=== PATIENT | male | born 1960 | race Caucasian/White ===

== ENCOUNTER 2017-07-04 22:01 | Observation (INO) ==
--- NOTE | 2017-07-04 22:04 | Emergency Department Note ---
Disposition Clinical Impression: Cerebrovascular accident Disposition: Admitted As Inpatient Condition: Fair Forms: ED Satisfaction Letter Time of Disposition: 23:59 Neuro HPI - General Chief Complaint: ED Neuro Symptoms/Deficit Stated Complaint: multiple complaints Time Seen by Provider: 07/04/17 22:04 Source: patient, EMS Mode of arrival: EMS Limitations: no limitations Nursing Notes Reviewed: Yes Vital Signs Reviewed: Yes - History of Present Illness HPI Narrative: With the past 6 days the patient has been having intermittent weakness of the right arm right leg with numbness and tingling initially it was intermittent but has been progressively worsening to the point now where it is persistent at about 9:00 today it got worse he denies fever chills blurred vision double vision tells me that that has not been sleeping very much she has noticed that he has had some difficulty speaking he denies any headache neck pain neck stiffness rashes or lesions he states though that with confirmation of these symptoms have been going on for at least 6 days about 3 months ago 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 Denies: confusion, chest pain, cough, diaphoresis, fever/chills, headaches, nausea/ vomiting, vertigo, seizures, shortness of breath, syncope Treatments Prior to Arrival: monitor, prehospital POC glucose - Related Data Home Medications: Home Medications Medication Instructions Recorded Confirmed HYDROcodone/Acet 5/325 mg 07/04/17 Nexium 07/04/17 Allergies/Adverse Reactions: Allergies Allergy/AdvReac Type Severity Reaction Status Date / Time COOL WHIP AdvReac Hives Uncoded 10/15/15 09:05 All systems ED: reviewed and negative except as stated. Review of Systems: As Per HPI Constitutional: Reports: weakness. Denies: fever, chills Eyes: Denies: eye pain, eye discharge ENT ED: Denies: ear pain, throat pain Cardiovascular: Denies: chest pain, palpitations Respiratory: Denies: cough, dyspnea, wheezes Gastrointestinal: Denies: abdominal pain, nausea, vomiting Genitourinary: Denies: urgency, dysuria, frequency Musculoskeletal: Denies: back pain Integumentary: Denies: rash, abrasion Neurological: Reports: weakness, numbness, abnormal gait. Denies: headache Psychiatric: Denies: anxiety Endocrine: Denies: fatigue Hematological/Lymphatic: Denies: easy bleeding Allergic/Immunologic: Denies: facial swelling Past Medical History - Past Medical History Attestation: Yes The following information was validated with the patient. Source: patient, old records reviewed, nursing notes reviewed Medical history: Reports: arthritis, COPD, GERD, hyperlipidemia, hypertension, myocardial infarction, valvular heart disease Surgical history: Reports: cholecystectomy, hip replacement Psychiatric history: Reports: no psych history - Social History Smoking Status: Current every day smoker Alcohol use: Reports: rarely Drug use: Reports: none Physical Exam - General Limitations: language barrier General appearance: alert, in no apparent distress - Head Head exam: atraumatic, normocephalic, normal inspection - Eye Eye exam: Present: normal appearance, PERRL, EOMI - ENT ENT exam: normal exam, normal oropharynx, mucous membranes moist, TM's normal bilaterally, normal external ear exam, other (Patient has trouble speaking appears to have some left-sided facial weakness) - Neck Neck exam: Present: normal inspection, full ROM, trachea midline - Chest Chest inspection: Present: normal inspection, symmetric chest wall rise. Absent : tenderness - Respiratory Respiratory exam: Present: normal lung sounds bilaterally - Cardiovascular Cardiovascular exam: Present: regular rate, normal rhythm, normal heart sounds - Abdominal Exam Abdominal exam: Present: soft, Non-Tender, normal bowel sounds. Absent: mass, pulsatile mass - Expanded Upper Extremity Exam Shoulder exam: Present: normal inspection, full ROM, other (Right-sided arm and leg weakness in comparison to the left with numbness noted to these extremities with a dulled sensation left side is normal) Arm exam: Present: normal inspection, full ROM Elbow exam: Present: normal inspection, full ROM Forearm/Wrist exam: Present: normal inspection, full ROM Hand exam: Present: normal inspection, full ROM Neurosensory exam: Normal: radial nerve, ulnar nerve, median nerve Vascular exam: Normal: capillary refill, radial pulse, ulnar pulse - Expanded Lower Extremity Exam Hip/Pelvis exam: Present: normal inspection, full ROM, other (Right leg right knee right hip weakness with numbness down the leg decreased sensation in comparison to the left patient has trouble lifting legs up off the bed) Upper leg exam: Present: normal inspection, full ROM Knee exam: Present: normal inspection, full ROM Lower leg exam: Present: normal inspection, full ROM Ankle exam: Present: normal inspection, full ROM Foot/toe exam: Present: normal inspection, full ROM Neurovascular/Tendon exam: Present: normal capillary refill, normal fine/light touch. Absent: motor deficit, sensory deficit, tendon deficit Gait: observed and normal - Back Exam Back exam: Present: normal inspection, full ROM. Absent: muscle spasm - Neurological Exam Neurological exam: Present: alert, oriented X3 - Psychiatric Psychiatric exam: Present: normal affect, normal mood - Skin Skin exam: Present: warm, dry, intact, normal color Course Course Narrative: he was seen and examined CT was done with notification of a subacute infarct I did speak with family about the findings of the results I offered to send to [place] or [facility] as result of an acute stroke they did not want to travel to [place] and they were understanding that he was outside the stroke window because symptoms have been occurring up to the sixth days patient will be admitted to our facility for physical therapy and occupational therapy and speech therapy evaluation and further management Vital Signs Temperature 98.6 F 07/04/17 22:05 Pulse Rate 87 07/04/17 22:05 Respiratory Rate 24 07/04/17 22:05 Blood Pressure 140/92 07/04/17 22:05 O2 Sat by Pulse Oximetry 93 07/04/17 22:05 Temperature 98.6 F 07/04/17 22:05 Pulse Rate 82 07/04/17 23:41 Respiratory Rate 24 07/04/17 23:41 Blood Pressure 155/82 07/04/17 23:41 O2 Sat by Pulse Oximetry 95 07/04/17 23:41 Oxygen Delivery Oxygen Delivery Nasal Cannula Neuro Symptoms/Deficit - Differential Diagnosis Likely: cerebrovascular accident, transient cerebral ischemia - Medical Records Medical records reviewed: Yes I reviewed the patient's medical records. - Lab Data Lab results reviewed: Yes I reviewed the patient's lab results. Result diagrams: 07/04/17 22:07 07/04/17 22:07 Lab Results 07/04/17 07/04/17 07/04/17 Range/Units 22:07 22:07 22:07 WBC 10.1 (4.3-11.1) K/mcL RBC 4.92 (4.19-5.50) M/mcL Hgb 16.0 (12.9-16.9) g/dL Hct 46.0 (37.5-50.1) % MCV 93.5 (83.0-100.0) fL MCH 32.5 (28.0-33.3) pg MCHC 34.8 (31.6-35.5) g/dL RDW 12.8 (11.5-14.5) % Plt Count 241 (140-400) K/mcL MPV 10.9 (9.4-12.4) fL Immature Gran % 0.3 (0-4) % Seg Neutrophils % 52.1 % Lymphocytes % 31.6 % Monocytes % 9.3 % Eosinophils % 5.9 % Basophils % 0.8 % Neutrophils # 5.2 (1.6-8.9) K/mcL Lymphocytes # 3.2 (0.6-4.6) K/mcL Monocytes # 0.9 (0.0-1.3) K/mcL Eosinophils # 0.6 (0.0-0.6) K/mcL Basophils # 0.1 (0.0-0.2) K/mcL PT 10.6 (9.4-12.1) Seconds INR 1.0 APTT 35.9 (26.0-36.0) Seconds ABG pH (7.32-7.45) pH Units ABG pCO2 (35-45) mmHg ABG pO2 (85-104) mmHg ABG HCO3 (21-27) mEQ/L ABG Total CO2 (20-26) mEq/L ABG O2 Saturation (95-98) % ABG Base Excess (-2.0 to 3.0) mEq/L Inspired O2 % Sodium 138 (136-145) mEq/L Potassium 4.0 (3.5-4.5) mEq/L Chloride 108 (98-109) mEq/L Carbon Dioxide 19 (19-29) mEq/L BUN 9 (8-26) mg/dL Creatinine 0.77 (0.72-1.25) mg/dL Est GFR ( Amer) > 60 (> 60) Est GFR (Non-Af Amer) > 60 (> 60) BUN/Creatinine Ratio 12 (6-26) Glucose 103 H (70-99) mg/dL Calculated Osmolality 285 (280-300) Calcium 10.1 (8.6-10.8) mg/dL Total Bilirubin 0.4 (0.2-1.2) mg/dL AST 24 (5-34) Units/L ALT 28 (0-55) Units/L Alkaline Phosphatase 92 (38-126) Units/L Troponin I (0-0.03) ng/mL Serum Total Protein 7.9 (6.0-8.3) g/dL Albumin 3.6 (3.5-5.0) g/dL Globulin 4.3 H (2.4-3.5) g/dL Albumin/Globulin Ratio 0.8 L (1.1-2.2) TSH 0.708 (0.350-4.840) mcIU/mL 07/04/17 07/04/17 07/04/17 Range/Units 22:07 23:35 23:42 WBC (4.3-11.1) K/mcL RBC (4.19-5.50) M/mcL Hgb (12.9-16.9) g/dL Hct (37.5-50.1) % MCV (83.0-100.0) fL MCH (28.0-33.3) pg MCHC (31.6-35.5) g/dL RDW (11.5-14.5) % Plt Count (140-400) K/mcL MPV (9.4-12.4) fL Immature Gran % (0-4) % Seg Neutrophils % % Lymphocytes % % Monocytes % % Eosinophils % % Basophils % % Neutrophils # (1.6-8.9) K/mcL Lymphocytes # (0.6-4.6) K/mcL Monocytes # (0.0-1.3) K/mcL Eosinophils # (0.0-0.6) K/mcL Basophils # (0.0-0.2) K/mcL PT (9.4-12.1) Seconds INR APTT (26.0-36.0) Seconds ABG pH 7.41 7.40 (7.32-7.45) pH Units ABG pCO2 36 36 (35-45) mmHg ABG pO2 80 L 80 L (85-104) mmHg ABG HCO3 22.7 22.7 (21-27) mEQ/L ABG Total CO2 23.9 23.9 (20-26) mEq/L ABG O2 Saturation 96 96 (95-98) % ABG Base Excess -2.0 -1.5 (-2.0 to 3.0) mEq/L Inspired O2 21 % Sodium (136-145) mEq/L Potassium (3.5-4.5) mEq/L Chloride (98-109) mEq/L Carbon Dioxide (19-29) mEq/L BUN (8-26) mg/dL Creatinine (0.72-1.25) mg/dL Est GFR ( Amer) (> 60) Est GFR (Non-Af Amer) (> 60) BUN/Creatinine Ratio (6-26) Glucose (70-99) mg/dL Calculated Osmolality (280-300) Calcium (8.6-10.8) mg/dL Total Bilirubin (0.2-1.2) mg/dL AST (5-34) Units/L ALT (0-55) Units/L Alkaline Phosphatase (38-126) Units/L Troponin I 0.00 (0-0.03) ng/mL Serum Total Protein (6.0-8.3) g/dL Albumin (3.5-5.0) g/dL Globulin (2.4-3.5) g/dL Albumin/Globulin Ratio (1.1-2.2) TSH (0.350-4.840) mcIU/mL - Radiology Data Radiology results reviewed: Yes I reviewed the patient's radiology results. ITS Impressions Chest X-Ray 07/04/17 22:23 IMPRESSION: Stable coarsening of the interstitial markings, likely related to pulmonary fibrosis. Otherwise no acute cardiopulmonary disease. Trace left pleural effusion is suspected. D/ / Jon Hahn MD / Jon Hahn MD Interpreting Provider: Jon Hahn MD Head CT 07/04/17 22:23 IMPRESSION: 1. Evidence of a late subacute chronic infarct involving the right periventricular white matter, though this is new when compared to the previous exam. Otherwise, the brain parenchyma is stable when compared to the previous exam. D/ / Keanu Moore MD / Keanu Moore MD Interpreting Provider: Keanu Moore MD - EKG Data EKG attestation: Yes I reviewed and interpreted this EKG. EKG results narrative: On his rhythm rate 90 pR 127 QRS 108 QT 355 axis XCI NIH Stroke Scale - Level of Consciousness LOC: Drowsy, but arousable - LOC Questions LOC Questions: Answers both correctly - LOC Commands LOC Commands: Performs both correctly - Best Gaze Best Gaze: Normal - Visual Visual: No visual loss - Facial Palsy Facial Palsy: Minor asymmetry on smiling, flattened nasolabial fold - Motor Arms Motor Arm-Left: No drift for 10 seconds Motor Arm-Right: Drift, does NOT hit bed - Motor Legs Motor Leg-Left: No drift for 5 seconds Motor Leg-Right: No effort against gravity, limb falls to bed, some movement - Limb Ataxia Limb Ataxia: Present in TWO limbs - Sensory Sensory: Mild to moderate loss, "not as sharp" - Best Language Best Language: Mild to moderate aphasia. Examiner can identify picture from response - Dysarthria Dysarthria: Mild, slurs some words - Extinction and Inattention Extinction and Inattention: Inattention or extinction in ONE modality - NIHSS Total Score NIHSS Total Score: 12 TPA Checklist - LKW: 3-4.5 hrs Add. Warnings/Precautions Patient/family understanding: The patient/family members have been counseled and understood the risk, benefit , and alternatives of treatment. Critical Care Time Critical Care Time: Yes Total Critical Care Time: 35 Attestation: Critical care performed: 35 minutes as the result of evaluating the patient for possibility of an acute stroke but appears to be consistent with a stroke event that has occurred up to within the past 6 days discussed with family about the findings make arrangements for admission Time is exclusive of separately billable procedures. Time includes: direct patient care, patient reassessment, coordination of patient care, interpretation of data (laboratory data, radiology data, and respiratory data), review of patient's medical records, medical consultation and documentation of patient care. Procedures included in critical care time: Procedures excluded from critical care time:
[2017-07-04 22:30] LABS: Activated Partial Thrombo Time 35.9 Seconds (26.0-36.0); Basophils # 0.1 K/mcL (0.0-0.2); Basophils % 0.8 %; Eosinophils # 0.6 K/mcL (0.0-0.6); Eosinophils % 5.9 %; Immature Granulocytes % 0.3 % (0-4); Lymphocytes # 3.2 K/mcL (0.6-4.6); Lymphocytes % 31.6 %; Mean Corpuscular HGB Conc 34.8 g/dL (31.6-35.5); Mean Corpuscular Hemoglobin 32.5 pg (28.0-33.3); Mean Corpuscular Volume 93.5 fL (83.0-100.0); Mean Platelet Volume 10.9 fL (9.4-12.4); Monocytes # 0.9 K/mcL (0.0-1.3); Monocytes % 9.3 %; Neutrophils # 5.2 K/mcL (1.6-8.9); Platelet Count 241 K/mcL (140-400); Prothrombin Time 10.6 Seconds (9.4-12.1); Red Blood Count 4.92 M/mcL (4.19-5.50); Red Cell Distribution Width 12.8 % (11.5-14.5); Segmented Neutrophils % 52.1 %
[2017-07-04 22:44] LABS: Alanine Aminotransferase 28 Units/L (0-55); Albumin 3.6 g/dL (3.5-5.0); Albumin/Globulin Ratio 0.8 (1.1-2.2); Alkaline Phosphatase 92 Units/L (38-126); Aspartate Amino Transferase 24 Units/L (5-34); BUN/Creatinine Ratio 12 (6-26); Bilirubin,Total 0.4 mg/dL (0.2-1.2); Blood Urea Nitrogen 9 mg/dL (8-26); Calcium 10.1 mg/dL (8.6-10.8); Carbon Dioxide 19 mEq/L (19-29); Chloride 108 mEq/L (98-109); Globulin 4.3 g/dL (2.4-3.5); Glucose 103 mg/dL (70-99); Osmolality,Calculated 285 (280-300); Sodium 138 mEq/L (136-145); Total Protein 7.9 g/dL (6.0-8.3); eGFR For African Americans > 60 (> 60); eGFR For Non-African Americans > 60 (> 60)
[2017-07-04 23:03] LABS: Thyroid Stimulating Hormone 0.708 mcIU/mL (0.350-4.840)
[2017-07-04 23:44] LABS: ABG PH 7.41 pH Units (7.32-7.45)
[2017-07-04 23:45] LABS: ABG HCO3 22.7 mEQ/L (21-27); ABG Oxygen Saturation 96 % (95-98); ABG PCO2 36 mmHg (35-45); ABG PO2 80 mmHg (85-104); ABG TCO2 23.9 mEq/L (20-26); Blood Gas FiO2 21 %
[2017-07-04 23:46] LABS: ABG Base Excess -1.5 mEq/L (-2.0 to 3.0); ABG HCO3 22.7 mEQ/L (21-27); ABG Oxygen Saturation 96 % (95-98); ABG PCO2 36 mmHg (35-45); ABG PO2 80 mmHg (85-104); ABG TCO2 23.9 mEq/L (20-26)
[2017-07-05] MEDS ORDERED: D5% in Water 1,000 ML IVC PRN (00:46)
[2017-07-05] MEDS ORDERED: *HR* Morphine 2 MG/ML SYRINGE IVP PRN (00:46)
[2017-07-05] MEDS ORDERED: Naloxone 0.4 MG/ML INJ IVP PRN (00:46)
[2017-07-05] MEDS ORDERED: Ondansetron 4 MG/2 ML VIAL IVP PRN (00:46)
[2017-07-05] MEDS ORDERED: Dextrose Gel 15 GM PO PRN ×2 (00:46)
[2017-07-05] MEDS ORDERED: *HR* Dextrose 50 % in Water (Syg) 50 ML SYRINGE IVP PRN (00:46)
[2017-07-05] MEDS: 0.9 % Sodium Chloride 1,000 ML IVC SCH ×2 (04:10→16:54)
[2017-07-05] MEDS: Insulin LISPRO 300 UNITS/3 ML VIAL SQ SCH ×3 (07:30→18:07)
[2017-07-05] MEDS ORDERED: Perflutren Lipid Microsphere 1.3 ML in 0.9 % Sodium Chloride 8.7 ML IVP ONE (16:03)
--- NOTE | 2017-07-05 17:26 | Internal Med History&Physical ---
Date of Encounter: 07/05/17 Time of Encounter: 16:50 Assessment and Plan (1) Cerebrovascular accident Current visit: Yes Status: Acute I explained to him his head CT showed subacute right periventricular white matter infarct but this distribution would not explain his symptoms of right arm weakness and dysarthria. I will start him on aspirin. Carotid Doppler studies preliminary report shows no significant stenosis. Echocardiogram report is pending. He appears to have recovered without neurologic deficit present now. Qualifiers: CVA mechanism: unspecified Qualified Code(s): I63.9 - Cerebral infarction, unspecified Internal Medicine - H&P: HPI Chief complaint: Neurologic deficit Admitted From: Home Plans for Post Hospital Care: Home History of present illness: Mr. Mcfarlane is a 57 year old male who came to the emergency room stating he had multiple episodes of transient numbness and weakness with loss of control of his right arm. He reports episodes typically lasted several minutes to hours and gradually resolved. They would occasionally returned the same day. This occurred on a daily basis until the day of admission when he noticed he also had dysarthria present. He was able to contact his who brought him to the emergency room. He was evaluated and admitted to [facility] for ongoing care needs. He states he feels back to his baseline now. He denies previous similar episodes prior to 6 days ago. He denies history of large distribution strokes or seizures. Past Med Surg Social Fam HX - Past Medical History Medical history: arthritis, COPD, GERD, hyperlipidemia, hypertension, myocardial infarction, valvular heart disease Psychiatric history: no psych history - Past Surgical History Surgical History: cholecystectomy, hip replacement - Social History Smoking Status: Current every day smoker Packs per day: 1 Smokeless Tobacco Status: No Alcohol use: rarely Drug use: none Internal Medicine - H&P: Meds HYDROcodone/Acet 5/325 mg 07/04/17 [History] Nexium 07/04/17 [History] Allergies COOL WHIP Adverse Reaction (Uncoded 10/15/15 09:05) Hives All Systems PM: A 10-system review of systems was performed and is negative for pertinent findings except as documented above in the HPI. Review of systems: Gen.: He states his weight has decreased 30-40 pounds in the past year, intentionally Cardiovascular: He denies known hypertension CO heart failure DVT or pulmonary embolus. An echocardiogram done 10/15/2015 showed LVEF 60% with moderate LV diastolic dysfunction reported. The E/A ratio was 1.3. Respiratory: He has smoked since age 10 up to 6 packs per day. He has a diagnosis of COPD. He does not use home oxygen. GI: He states he has chronic diarrhea. He has had cholecystectomy. He has GERD. He denies disorders of his liver or exocrine pancreas : He has had kidney stones in the past. He denies other kidney bladder prostate disorders Neurologic: As per history of present illness Endocrine: He has no known diabetes thyroid disease or hyperlipidemia Hematology/oncology: Denies blood disorders cancers or anemia Psychiatric: He has anxiety but denies depression or other mental health issues Musk skeletal: He has DJD but denies gout or other bone joint or muscle disorders. - Constitutional Vitals: Temp Pulse Resp BP Pulse Ox 97.9 F 75 16 113/77 95 07/05/17 13:13 07/05/17 13:31 07/05/17 13:31 07/05/17 13:31 07/05/17 13:31 Exam: Gen.: He is a well-developed well-nourished male who appears in no acute distress at present time. HEENT: Head is atraumatic and normocephalic. Eyes: EOMI. There is no scleral icterus. Mouth: Mucosa is moist. Neck: Supple and nontender. There is no thyromegaly or adenopathy noted. Heart: Regular without murmurs gallops or ectopics Lungs: No wheezes or crackles are heard. Abdomen: Soft and nontender. No masses or guarding noted. Extremities: There is no cyanosis edema or clubbing noted. Dorsalis pedis and posterior tibial pulses are 1-2 over 2 bilaterally. Neurologic: Mental status: He is talkative and a good historian. Cranial nerves : Smile is symmetric. Forehead wrinkles bilaterally. Tongue protrudes midline. EOMI. There is no dysarthria. Motor: There is no pronator drift. Ankle flexion and extension strength against resistance is normal and symmetric. Rapid finger movements are symmetric. Cerebellar: Finger to nose is intact bilaterally. Skin: Warm and dry Internal Med - H&P Results - Labs CBC & Chem 7: 07/04/17 22:07 07/04/17 22:07 Labs: Cardiac Enzymes 07/05/17 07/05/17 Range/Units 04:10 11:23 Troponin I 0.00 0.00 (0-0.03) ng/mL
[2017-07-05] MEDS ORDERED: Aspirin 325 MG TABLET PO SCH (17:45)
[2017-07-05] MEDS: *HR* HYDROcodone/Acet 5/325 mg TABLET PO PRN (21:34)
[2017-07-06] MEDS: *HR* HYDROcodone/Acet 5/325 mg TABLET PO PRN (05:04)
[2017-07-06 06:58] VITALS: BP 155/87
[2017-07-06] MEDS ORDERED: Aspirin Enteric Coated 81 MG Tablet PO SCH (09:00)
--- NOTE | 2017-07-06 09:38 | Discharge Summary ---
Date of Encounter: 07/06/17 Time of Encounter: 09:30 - Discharge Diagnosis (1) TIA (transient ischemic attack) Priority: Primary Status: Acute Qualifiers: Transient cerebral ischemia type: unspecified Qualified Code(s): G45.9 - Transient cerebral ischemic attack, unspecified (2) Cerebrovascular accident Priority: Secondary Status: Acute Qualifiers: CVA mechanism: unspecified Qualified Code(s): I63.9 - Cerebral infarction, unspecified - Discharge Medications Home Medications: HYDROcodone/Acet 5/325 mg 07/04/17 [History] Nexium 07/04/17 [History] Aspirin Enteric Coated [Aspirin EC] 81 mg PO DAILY 07/06/17 [Rx] Allergies/Adverse Reactions: Allergies COOL WHIP Adverse Reaction (Uncoded 10/15/15 09:05) Hives Procedures/tests Complete & Pending: Procedures Performed prior 72 hours Category Date Time Status EV echocardiogram w enhance Stat Y 07/05/17 00:46 Completed Date of admission: 07/05/17 00:27 Primary care physician: Chin Alvarez M.D. - Patient Status Disposition: Home, Self-Care Condition: Fair Functional capacity at discharge: independent ambulation Overall status at discharge: patient is progressing back to baseline - Discharge Instructions Follow Up With: Chin Alvarez MD [Partnered Physician] - 1 week - Diet and Activity Activity: resume usual activities as tolerated Diet: advance to your usual diet Hospital course: Mr. Mcfarlane is a 57 year old male who came to the emergency room stating he had multiple episodes of transient numbness and weakness with loss of control of his right arm. He reports episodes typically lasted several minutes to hours and gradually resolved. They would occasionally returned the same day. This occurred on a daily basis until the day of admission when he noticed he also had dysarthria present. He was able to contact his who brought him to the emergency room. He was evaluated and admitted to [facility] for ongoing care needs. Initial orders were written by the emergency room physician. I saw him on July 05 and performed a history and physical. When I saw him he had no neurologic deficit present. Carotid Doppler studies and echocardiogram were done with final reports pending at time of this dictation. He had no further TIAs. He was started on aspirin 81 mg daily. When I saw him on July 06 he wished to be discharged on which I felt was reasonable. Room air oximetry on 6 minute walk showed satisfactory oxygen levels maintained. I encouraged him to discontinue smoking. He will follow with his PCP Dr. Chin Alvarez within 1 week. - Time Spent with Patient Total time spent providing and/or coordinating discharge services: - Constitutional Vitals: Temp Pulse Resp BP Pulse Ox 97.8 F 76 18 155/87 95 07/06/17 06:56 07/06/17 06:56 07/06/17 06:56 07/06/17 06:56 07/06/17 09:02
--- NOTE | 2017-07-06 17:25 | Carotid Imaging Report ---
Carotid Duplex Patient Name:Graham Mcfarlane Order Number:[id number] Procedure Date:07/05/2017 Date:8Age:57 yrs Gender:Male Lt BP:120 / 60 mmHg Rt.BP:120 / 60 mmHgHeart Rate: Location:[facility] Room #: 55 Financial Dealers:SHERRY JenningsT, CS Referring MD:Jon Ribera MD energy conservation director:Chin Alvarez MD Reading MD:Graham Flaherty MD Primary Indications:cva Risk Factors Yes/No Diabetes No Impressions: The bilateral carotid arteries have minimal plaque throughout. Findings Carotid Duplex: Right: The right proximal common carotid artery has a PSV of 108 cm/s and a EDV of 15 cm/s. The right mid common carotid artery has a PSV of 82 cm/s and a EDV of 14 cm/s. The right distal common carotid artery has a PSV of 77 cm/s and a EDV of 18 cm/s. The right bifurcation has a PSV of 58 cm/s and a EDV of 15 cm/s. There is smooth heterogeneous plaque. The right proximal internal carotid artery has a PSV of 67 cm/s and a EDV of 16 cm/s. There is smooth heterogeneous plaque. The right mid internal carotid artery has a PSV of 82 cm/s and a EDV of 9 cm/s. The right distal internal carotid artery has a PSV of 73 cm/s and a EDV of 23 cm/s. The right eca has a PSV of 83 cm/s and a EDV of 9 cm/s. The right vertebral artery has a PSV of 41 cm/s and a EDV of 10 cm/s. Left: The left proximal common carotid artery has a PSV of 104 cm/s and a EDV of 18 cm/s. The left mid common carotid artery has a PSV of 89 cm/s and a EDV of 16 cm/s. The left distal common carotid artery has a PSV of 97 cm/s and a EDV of 22 cm/s. The left bifurcation has a PSV of 66 cm/s and a EDV of 20 cm/s. There is smooth heterogeneous plaque. The left proximal internal carotid artery has a PSV of 66 cm/s and a EDV of 20 cm/s. There is smooth heterogeneous plaque. The left mid internal carotid artery has a PSV of 72 cm/s and a EDV of 20 cm/s. The left distal internal carotid artery has a PSV of 80 cm/s and a EDV of 24 cm/s. The left eca has a PSV of 84 cm/s and a EDV of 16 cm/s. The left vertebral artery has a PSV of 41 cm/s and a EDV of 11 cm/s. Carotid Results Right PSV EDV Assessment Proximal CCA 108 15 Mid CCA 82 14 Distal CCA 77 18 Bifurcation 58 15 Non Stenotic Plaque Proximal ICA 67 16 Non Stenotic Plaque Mid ICA 82 9 Distal ICA 73 23 ECA 83 9 Vertebral Artery 41 10 Left PSV EDV Assessment Proximal CCA 104 18 Mid CCA 89 16 Distal CCA 97 22 Bifurcation 66 20 Non Stenotic Plaque Proximal ICA 66 20 Non Stenotic Plaque Mid ICA 72 20 Distal ICA 80 24 ECA 84 16 Vertebral Artery 41 11 Ratio's Right ICA/CCA Ratio: 0.89 Left ICA/CCA Ratio: 0.74 Updated by Graham Flaherty MD on 07/06/2017 5:20:23 PM electronically signed on 07/06/2017 5:20:45 PM with status of Final
== END 2017-07-06 10:30 | disposition home or self-care (01) ==
LOC: EMEROOPIK 22:01 → INPPIK 22:01
PROVIDERS: ADMIT Internal Medicine; ATTEND Internal Medicine